=== PATIENT | female | born 1980 | race Caucasian/White ===

== ENCOUNTER 2021-04-15 12:44 | Inpatient (IN) ==
[2021-04-15 16:02] LABS: Basophils % 0.2 % (0.0-0.8); Eosinophils # 1.8 10*3/uL (0.0-0.87); Eosinophils % 9.7 % (0.00-10.9); Hematocrit 41.7 VOL% (35.7-47.0); Hemoglobin 14.5 GM/DL (12.0-16.0); Immature Granulocytes % 0.8 %; Immature Granulocytes Absolute 0.15 #; Lymphocytes # 1.7 10*3/uL (1.4-4.0); Lymphocytes % 8.8 % (21.3-54.2); Mean Corpuscular HGB Conc 34.8 GM/DL (32-36); Mean Corpuscular Volume 86.9 FL (87-102); Mean Platelet Volume 10.8 FL (9.6-12.0); Monocytes % 6.9 % (1.7-12.7); Neutrophils % 73.6 % (38.7-73.9); Platelet Count 226 T/CUMM (130-400); Red Cell Distribution Width 12.2 % (9.3-17.3); White Blood Count 18.9 T/CUMM (4-12)
[2021-04-15 16:21] LABS: Alanine Aminotransferase 45 U/L (13-56); Albumin 3.5 G/DL (3.4-5.0); Alkaline Phosphatase 66 U/L (45-117); Aspartate Amino Transferase 20 U/L (0-37); Bilirubin,Total < 0.39 MG/DL (0.2-1.0); Blood Urea Nitrogen 16 MG/DL (7-18); Calcium 9.2 MG/DL (8.5-10.1); Carbon Dioxide 24 MMOL/L (21-32); Estimated Glom Filtration Rate 69 ML/MIN; Glucose 128 MG/DL (74-106); Osmolality,Calculated 279.5 MOS/KG (273-304); Potassium 3.9 MMOL/L (3.5-5.1); Sodium 139 MMOL/L (136-145); Total Protein 7.4 G/DL (6.4-8.2)
[2021-04-15 16:36] LABS: Bacteria,Urine Occasional /HPF (Few); Bilirubin,Urine Negative (Negative); Blood, Urine Negative (Negative); Calcium Oxalate Crystals,Urine Occasional /HPF (Few); Glucose,Urine (UA) >=500 mg/dL (Negative); Ketones,Urine Negative (Negative); Mucus,Urine Many /LPF (Occasional); Nitrite,Urine Negative (Negative); Protein,Urine 30 MG/DL; Squamous Epithelial Cell,Urine Occasional /HPF (0-10); Urine Appearance Slightly Hazy (Clear); Urine Color Yellow (Yellow); Urine Specific Gravity 1.017 (1.001-1.035)
[2021-04-15] MEDS ORDERED: ONDANSETRON 4 MG/2 ML VIAL ONE (17:01)
[2021-04-15] MEDS ORDERED: MORPHINE 4 MG/1 ML VIAL ONE (17:01)
[2021-04-15] MEDS ORDERED: MORPHINE 4 MG/1 ML VIAL IV STA (17:45)
[2021-04-15] MEDS ORDERED: ONDANSETRON 4 MG/2 ML VIAL IV STA (17:46)
[2021-04-15 17:59] LABS: Lymphocytes 8 % (20-55); Segmented Neutrophils 86 % (50-85); Total Cells Counted 100
[2021-04-15] MEDS ORDERED: ACETAMINOPHEN 325 MG TABLET PO PRN (21:05)
[2021-04-15] MEDS ORDERED: PROMETHAZINE 25 MG/1 ML VIAL IM PRN (21:05)
[2021-04-15] MEDS ORDERED: oxyCODONE/ACETAMINOPHEN 5-325 MG TABLET PO PRN (21:05)
[2021-04-15] MEDS: SODIUM CHLORIDE 0.9% 1,000 ML IV SCH (21:30)
[2021-04-15] MEDS: DOCUSATE SODIUM 100 MG CAPSULE PO SCH (21:30)
[2021-04-15] MEDS: ENOXAPARIN 60 MG/0.6 ML SYRINGE SUBCUT SCH (21:30)
[2021-04-15] MEDS: LEVOFLOXACIN INJ 750 MG/150 ML PREMIX IV SCH (21:30)
[2021-04-15] MEDS: HYDROmorphone 2 MG/1 ML VIAL IV PRN (21:30)
[2021-04-16] MEDS: ONDANSETRON 4 MG/2 ML VIAL IV PRN ×3 (01:16→23:36)
[2021-04-16] MEDS: HYDROmorphone 2 MG/1 ML VIAL IV PRN ×2 (03:01→10:27)
[2021-04-16] MEDS: SODIUM CHLORIDE 0.9% 1,000 ML IV SCH ×3 (06:10→21:37)
[2021-04-16] MEDS: DOCUSATE SODIUM 100 MG CAPSULE PO SCH ×2 (09:00→21:30)
[2021-04-16] MEDS ORDERED: PNEUMOCOCCAL VACCINE (23 VALENT) 0.5 ML VIAL IM ONE (09:00)
[2021-04-16] MEDS: ENOXAPARIN 60 MG/0.6 ML SYRINGE SUBCUT SCH ×2 (09:05→21:55)
[2021-04-16] MEDS ORDERED: MAGNESIUM SULF RIDER 4 GM/100 ML PREMIX IV PRN (09:56)
[2021-04-16] MEDS ORDERED: MAGNESIUM SULF RIDER 2 GM/50 ML PREMIX IV PRN (09:56)
[2021-04-16] MEDS ORDERED: GLUCAGON 1 MG VIAL IM PRN (09:56)
[2021-04-16] MEDS ORDERED: DEXTROSE 50% 25 GM/50 ML VIAL IV PRN (09:56)
[2021-04-16 10:20] LABS: Basophils % 0.1 % (0.0-0.8); Eosinophils % 0.1 % (0.00-10.9); Hematocrit 39.9 VOL% (35.7-47.0); Hemoglobin 13.1 GM/DL (12.0-16.0); Immature Granulocytes % 0.4 %; Immature Granulocytes Absolute 0.04 #; Lymphocytes % 19.8 % (21.3-54.2); Mean Corpuscular HGB Conc 32.8 GM/DL (32-36); Mean Corpuscular Volume 90.9 FL (87-102); Mean Platelet Volume 10.7 FL (9.6-12.0); Monocytes % 8.2 % (1.7-12.7); Neutrophils % 71.4 % (38.7-73.9); Platelet Count 170 T/CUMM (130-400); Red Blood Count 4.39 MC/CUMM (3.8-5.5); Red Cell Distribution Width 12.6 % (9.3-17.3); White Blood Count 10.1 T/CUMM (4-12)
[2021-04-16 10:37] LABS: Alanine Aminotransferase 77 U/L (13-56); Albumin 3.3 G/DL (3.4-5.0); Alkaline Phosphatase 55 U/L (45-117); Aspartate Amino Transferase 64 U/L (0-37); Bilirubin,Total < 0.39 MG/DL (0.2-1.0); Blood Urea Nitrogen 17 MG/DL (7-18); Calcium 8.3 MG/DL (8.5-10.1); Carbon Dioxide 26 MMOL/L (21-32); Estimated Glom Filtration Rate 79 ML/MIN; Glucose 80 MG/DL (74-106); Potassium 3.8 MMOL/L (3.5-5.1); Sodium 136 MMOL/L (136-145); Total Protein 6.4 G/DL (6.4-8.2)
[2021-04-16] MEDS ORDERED: INSULIN REGULAR 100 UNIT/ML SUBCUT SCH (11:30)
[2021-04-16] MEDS: busPIRone 10 MG TABLET PO SCH ×2 (15:00→21:30)
[2021-04-16] MEDS: PANTOPRAZOLE 40 MG TABLET PO SCH (19:10)
[2021-04-16] MEDS: LEVOFLOXACIN INJ 750 MG/150 ML PREMIX IV SCH (21:31)
[2021-04-16] MEDS: ENOXAPARIN 40 MG/0.4 ML SYRINGE SUBCUT SCH (23:36)
[2021-04-17 05:05] LABS: Basophils % 0.2 % (0.0-0.8); Eosinophils % 0.5 % (0.00-10.9); Hemoglobin 11.8 GM/DL (12.0-16.0); Immature Granulocytes % 0.5 %; Immature Granulocytes Absolute 0.03 #; Lymphocytes % 32.6 % (21.3-54.2); Mean Corpuscular HGB Conc 32.8 GM/DL (32-36); Mean Corpuscular Volume 91.1 FL (87-102); Monocytes % 11.8 % (1.7-12.7); Neutrophils % 54.4 % (38.7-73.9); Platelet Count 143 T/CUMM (130-400); Red Blood Count 3.95 MC/CUMM (3.8-5.5); Red Cell Distribution Width 12.2 % (9.3-17.3); White Blood Count 6.2 T/CUMM (4-12)
[2021-04-17 05:34] LABS: Bilirubin,Total 0.5 MG/DL (0.2-1.0); Calcium 8.2 MG/DL (8.5-10.1); Osmolality,Calculated 272.7 MOS/KG (273-304); Potassium 4.1 MMOL/L (3.5-5.1); Total Protein 6.2 G/DL (6.4-8.2)
[2021-04-17] MEDS: SODIUM CHLORIDE 0.9% 1,000 ML IV SCH ×2 (07:00→14:18)
[2021-04-17] MEDS: PANTOPRAZOLE 40 MG TABLET PO SCH (08:18)
[2021-04-17] MEDS: OXYBUTYNIN XL 5 MG TABLET PO SCH (08:18)
[2021-04-17] MEDS: busPIRone 10 MG TABLET PO SCH ×3 (08:18→21:27)
[2021-04-17] MEDS: DOCUSATE SODIUM 100 MG CAPSULE PO SCH ×2 (08:18→21:27)
[2021-04-17] MEDS: ENOXAPARIN 40 MG/0.4 ML SYRINGE SUBCUT SCH (11:22)
[2021-04-17 19:47] LABS: PT Patient Result 11.4 SECS (10.5-12.0)
[2021-04-17 19:49] LABS: INR 0.9; PT Patient Result 10.7 SECS (10.5-12.0); Partial Thromboplastin Time 29.3 SECS (23.9-33.8)
[2021-04-17] MEDS: LEVOFLOXACIN INJ 750 MG/150 ML PREMIX IV SCH (21:27)
[2021-04-17] MEDS: APIXABAN 5 MG TABLET PO SCH (21:27)
[2021-04-18] MEDS: PANTOPRAZOLE 40 MG TABLET PO SCH (09:07)
[2021-04-18] MEDS: DOCUSATE SODIUM 100 MG CAPSULE PO SCH (09:07)
[2021-04-18] MEDS: APIXABAN 5 MG TABLET PO SCH (09:07)
[2021-04-18] MEDS: OXYBUTYNIN XL 5 MG TABLET PO SCH (09:07)
[2021-04-18] MEDS: busPIRone 10 MG TABLET PO SCH (09:08)
[2021-04-18 11:39] VITALS: BP 117/66
== END 2021-04-18 12:45 | disposition home or self-care (01) | DRG 700 ==
LOC: N.ED 12:44 → N.EDINP 19:15 → N.3E 04-16 00:42
PROVIDERS: ADMIT Family Medicine; ATTEND Family Medicine